=== PATIENT | female | born 1970 | race Caucasian/White ===

== ENCOUNTER 2022-12-04 09:39 | Outpatient (CLI) | payer OTHER, SELFPAY ==
--- NOTE | 2022-12-04 11:00 | NEURO_ITS ---
Impression: History of numbness in medial aspect of hand and forearm. # Evidence of early right ulnar neuropathy with mild slowing across the elbow. # Normal needle/EMG exam. # Clinical correlation recommended. Motor Nerve Conduction Upper Extremities Median Nerve Conduction Velocity (m/sec) Terminal Latency (msec) Response Voltage(mV) Elbow-Wrist Wrist Elbow Wrist Right 55 2.6 6 7 Left 58 2.8 7 8 Ulnar Nerve Conduction Velocity (m/sec) Terminal Latency (msec) Response Voltage(mV) Above Elbow Below Elbow Wrist Above Elbow Below Elbow Wrist Right 49 56 2.5 7 7 10 Left 55 61 2.7 5 5 6 F-Wave Latency Median (ms) Ulnar (ms) Right 26.9 26.9 Left 26.5 27.0 Sensory Nerve Conduction Upper Extremities Median Nerve Stimulation Terminal Latency (msec) Wrist/Digit Response Voltage (uV) Wrist Right 2.8/3.1 33/57 Left 3.1/3.1 42/45 Ulnar Nerve Stimulation Terminal Latency (msec) Wrist/Digit Response Voltage (uV) Wrist Right 3.0 15 Left 2.9 56 Radial Nerve Terminal Latency (msec) Response Voltage(mV) Right 1.9 39 Left 1.9 38 Left Right Muscles Examined Fibrillation Fasciculation Scarcity Voltage Duration Left Right Left Right Left Right Left Right Left Right Deltoid Biceps X X Brachioradialis Triceps X X Pronator Teres X X Ext Indicis X X Ext Digitorum X X Abd Poll Brev X X 1st Dorsal Interosseus Paraspinals MTDD
== END 2022-12-04 09:40 | disposition home or self-care (01) ==
LOC: ANHNEURO 09:44
PROVIDERS: Visit Provider Physician Assistant
DX: G56.23 Lesion of ulnar nerve, bilateral upper limbs (principal)
CPT/HCPCS: 95886; 95911